=== PATIENT | female | born 1960 | race Caucasian/White ===

== ENCOUNTER 2017-03-12 12:35 | Day surgery (SDC) | payer OTHER ==
[~2017-03-12] VITALS: Ht 152.4 cm; Wt 73.0 kg
[2017-03-12] VITALS (10 sets, daily range): BP systolic 128–139; BP diastolic 80–89; PULSE 72–78; RESP 15–24; Ht 152.4 cm; Wt 73.0 kg
[2017-03-12] MEDS ORDERED: AMLO-145 PO (14:09)
[2017-03-12] MEDS ORDERED: MELO-109 PO (14:10)
[2017-03-12] MEDS ORDERED: ATOR10TA65 PO (14:10)
[2017-03-12] MEDS ORDERED: LOSA100T7 PO (14:11)
[2017-03-12] MEDS ORDERED: OMEP20CA16 PO (14:11)
[2017-03-12] MEDS ORDERED: TRAZ50TA18 PO (14:12)
[2017-03-12] MEDS ORDERED: CALC-267 PO (14:13)
[2017-03-12] MEDS ORDERED: LACTATED RINGER'S 1,000 ML IV* SCH (14:30)
[2017-03-12] MEDS ORDERED: CEFAZOLIN 2 GM/50 ML (PMX) 50 ML IVPB SCH (15:00)
--- NOTE | 2017-03-12 15:37 | HPN ---
Date/Time of Note Date/Time of Note DATE: 03/12/17 TIME: 15:37 Interval H&P Admission Note Pt. seen H&P reviewed: No system changes BARRIE TREVINO Mar 12, 2017 15:37
[2017-03-12] MEDS ORDERED: POLYMYXIN/BACITRACIN 1L IRRIG ONE (16:38)
[2017-03-12] MEDS ORDERED: BUPIVACAINE 0.5% (SDV) 30 ML INJ ONE (16:38)
[2017-03-12] MEDS ORDERED: ONDANSETRON 4 MG INJ ONE (16:58)
[2017-03-12] MEDS ORDERED: PROPOFOL 100 ML ONE (16:58)
[2017-03-12] MEDS ORDERED: FENTAnyl 50 MCG/ML VIAL ONE (16:58)
[2017-03-12] MEDS ORDERED: MIDAZOLAM 1 MG/ML 2 ML INJ ONE (16:58)
[2017-03-12] MEDS ORDERED: LIDOCAINE 1% (MPF) 30 ML INJ ONE (17:00)
[2017-03-12] MEDS ORDERED: KETOROLAC 30 MG INJ ONE (17:07)
--- NOTE | 2017-03-12 18:28 | OPR ---
DATE OF OPERATION: 03/12/2017 SURGEON: Jerry Tavera MD ANESTHESIA: Local MAC. PREOPERATIVE DIAGNOSIS: Right hand mass. POSTOPERATIVE DIAGNOSIS: Right hand mass. PROCEDURE: Excision of right hand vascular mass measuring 1 x 1 cm. 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 INDICATION FOR PROCEDURE: A 57-year-old female with longstanding right hand pain. She was seen in clinic, and I was able to palpate a mass at the base of the thenar eminence which was quite exquisit adolfo tender to palpation. I discussed the options with the patient, and due to failing conservative management, she elected to proceed with surgical intervention, understanding the risks and benefits. DESCRIPTION OF PROCEDURE: The patient was seen in the preoperative area, and all further questions were answered. Again she gave informed consent, understanding the risks, benefits. She was taken t o the operative suite and placed in supine position. Sedation was administered and tourniquet place d in the right upper extremity. Ancef 2 grams given, and right upper extremity was prepped with Chl oraPrep stick and draped in usual sterile fashion. A 50-50 mixture of 1% lidocaine and 0.5% Marcain e was injected in the surgical site for local anesthesia. Seven milliliters of total mixture was in jected. Esmarch bandage was used to exsanguinate the extremity and tourniquet inflated to 250 mmHg. A 2 cm incision over the base of the thenar eminence was utilized with sharp dissection carried do wn through skin and subcutaneous tissue. 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 The mass was c arefully dissected away from the deep dermis as well as off of the fascia and was completely excised . It was sent for specimen. There was a leading vessel to it and a leading vessel away from it whi ch were cauterized with Bovie electrocautery. Wound was copiously irrigated and skin closed with 5- 0 nylon. Xeroform placed followed by sterile gauze, Webril and a bias dressing. Tourniquet deflate d after 14 minutes, and the patient was awakened from anesthesia. She was taken to the postoperativ e suite in stable condition and tolerated procedure well without complication. SPECIMENS: Right hand mass. ESTIMATED BLOOD LOSS: 5 mL COUNTS: Sponge, instrument, needle counts correct. TOURNIQUET TIME: 14 minutes. CONDITION ON DISCHARGE: Stable. Dictated By: JERRY HASTINGS/[place] Conf#: [id number] DID#: [id number]
== END 2017-03-12 18:26 | disposition home or self-care (01) ==
LOC: SDS 12:35
PROVIDERS: ATTEND Orthopaedic Surgery Hand Surgery
DX: D18.09 Hemangioma of other sites (principal)
CPT/HCPCS: 11422; 88307; J1885; J2250; J2405; J3010; Z7512; Z7610

== ENCOUNTER 2019-07-15 07:57 | Day surgery (SDC) | payer OTHER ==
[~2019-07-15] VITALS: Ht 154.9 cm; Wt 74.5 kg
[~2019-07-15 07:57] MED LIST: AMLO-145 PO; ATOR10TA65 PO; CALC-267 PO; CALCIUM CARBONATE; LOSA100T15 PO; MELO7.5T38 PO; OMEP20CA16 PO; RANITIDINE; TRA50 PO; TYLENOL PRN
[2019-07-15 09:12] VITALS: Ht 154.9 cm; Wt 74.5 kg
[2019-07-15 10:54] VITALS: BP 175/88; PULSE 51; RESP 21
[2019-07-15] MEDS ORDERED: MIDAZOLAM 1 MG/ML 2 ML INJ ONE ×2 (11:38)
[2019-07-15] MEDS ORDERED: FENTAnyl 50 MCG/ML VIAL ONE (11:38)
[2019-07-15 11:56] VITALS: BP 147/92; RESP 16
== END 2019-07-15 12:58 | disposition home or self-care (01) ==
LOC: GIL 07:57
PROVIDERS: ATTEND Internal Medicine Gastroenterology
DX: Z12.11 Encounter for screening for malignant neoplasm of colon (principal); K63.89 Other specified diseases of intestine; K29.30 Chronic superficial gastritis without bleeding
CPT/HCPCS: 43239; 45378; 88305; 88312; 88313; J2250; J3010; Z7610